=== PATIENT | female | born 1975 | race Caucasian/White ===

== ENCOUNTER 2016-09-10 13:25 | Emergency (ER) | payer OTHER ==
[~2016-09-10] VITALS: Ht 165.1 cm; Wt 76.4 kg
[2016-09-10 13:26] VITALS: BP 123/73
--- NOTE | 2016-09-10 13:30 | NUR ---
PATIENT AMBULATED TO ER BED 7.
--- NOTE | 2016-09-10 13:40 | NUR ---
PATIENT PRESENTS TO ED WITH 41/F PRESENT TO ER C/O HEADACHE AND BACK PAIN x 2 DAYS. PAIN 8/10 SHARP NON-RADIATING. HX: NONE MEDS: NONE; . DENIES N/V/D; SKIN IS PINK/WARM/DRY; AAOX4 WITH EVEN AND STEADY GAIT; LUNGS CLEAR BL; HR EVEN AND REGULAR; PT DENIES ANY FEVER, CP, SOB, OR COUGH AT THIS TIME; PATIENT STATES HEAD ACHE LOW BACK PAIN OF 7/10 AT THIS TIME; VSS; PATIENT POSITIONED FOR COMFORT; HOB ELEVATED; BEDRAILS UP X2; BED DOWN. ER MD MADE AWARE OF PT STATUS.
--- NOTE | 2016-09-10 13:45 | NUR ---
PATIENT BEING EVALUATED BY DR. FALCON.
[2016-09-10] MEDS ORDERED: ONDANSETRON 4 MG ODT PO ONE (14:25)
[2016-09-10] MEDS ORDERED: KETOROLAC 60 MG/2 ML VIAL IM ONE (14:25)
--- NOTE | 2016-09-10 15:30 | NUR ---
DR FALCON AT BEDSIDE WITH ANSWEREING HUSBANDS QUESTIONS AND CONCERNS
[2016-09-10] MEDS ORDERED: ALPRAZolam 0.5 MG TAB PO ONE (15:35)
[2016-09-10 15:42] VITALS: BP 115/76
--- NOTE | 2016-09-10 15:42 | NUR ---
Patient discharged with v/s stable. Written and verbal after care instructions given and explained. Patient alert, oriented and verbalized understanding of instructions. Ambulatory with steady gait. All questions addressed prior to discharge. ID band removed. Patient advised to follow up with PMD. Rx of COMPAZINE, BENADRYL, XANAX given. Patient educated on indication of medication including possible reaction and side effects. Opportunity to ask questions provided and answered.
== END 2016-09-10 15:42 | disposition home or self-care (01) ==
LOC: MED 13:25
DX: R51 Headache (principal); I10 Essential (primary) hypertension; Z79.82 Long term (current) use of aspirin
CPT/HCPCS: 96372; 99283; J1885; S0119

== ENCOUNTER 2018-08-07 14:22 | Emergency (ER) | payer MEDICAID, OTHER ==
[~2018-08-07] VITALS: Ht 170.2 cm; Wt 101.7 kg
[2018-08-07 14:29] VITALS: BP 130/76
--- NOTE | 2018-08-07 14:49 | NUR ---
c/o bug bites rash follows vein tract---pruritus
[2018-08-07 15:57] VITALS: BP 121/79
--- NOTE | 2018-08-07 15:57 | NUR ---
Patient discharged with v/s stable. Written and verbal after care instructions given and explained. Patient alert, oriented and verbalized understanding of instructions. Ambulatory with steady gait. All questions addressed prior to discharge. ID band removed. Patient advised to follow up with PMD. Rx of BENADRYL DERMA-SMOOTHE/FS 0.01 %TOPICAL BODY OIL given. Patient educated on indication of medication including possible reaction and side effects. Opportunity to ask questions provided and answered.
== END 2018-08-07 15:57 | disposition home or self-care (01) ==
LOC: MED 14:22
DX: O26.893 Other specified pregnancy related conditions, third trimester (principal); R21 Rash and other nonspecific skin eruption; Z90.49 Acquired absence of other specified parts of digestive tract; Z3A.35 35 weeks gestation of pregnancy
CPT/HCPCS: 99282